=== PATIENT | female | born 1935 | race Caucasian/White ===

== ENCOUNTER 2021-05-06 09:47 | Emergency (ER) | payer MEDICARE, MEDICAID, SELFPAY ==
[2021-05-06] VITALS (17 sets, daily range): BP systolic 85–148; BP diastolic 61–99; PULSE 56–103; RESP 15–21; TEMP 36.6; O2SAT 95–100
--- NOTE | ~2021-05-06 | XR_ITS ---
EXAMINATION: XR chest 2V DATE: 05/06/2021 10:18 INDICATION: Weakness. TECHNIQUE: Frontal and lateral views of the chest were obtained. COMPARISON: None. FINDINGS: There is mild scarring at the lung apices. Right posterior costophrenic angle is excluded. No pleural effusion or pneumothorax. The heart size is normal. Median sternotomy wires and mediastina l surgical clips are seen, likely from prior coronary artery bypass grafting. There is calcified athe rosclerosis of the aorta, which is tortuous. IMPRESSION: 1. Mild scarring at the lung apices. Reviewed, dictated and finalized at location A.
--- NOTE | 2021-05-06 09:54 | ECG_ITS ---
Measurements Intervals [place] Rate: 66 P: 83 OK: 194 QRS: -42 QRSD: 115 T: 81 QT: 433 QTc: 455 Interpretive Statements SINUS RHYTHM POSSIBLE RIGHT ATRIAL ENLARGEMENT LEFT ATRIAL ENLARGEMENT LEFT AXIS DEVIATION INCOMPLETE RIGHT BUNDLE BRANCH BLOCK BORDERLINE ECG Electronically Signed On 05-06-2021 10:28:54 CDT by Sonu Sanchez D.O.
[2021-05-06 10:48] LABS: Basophils Absolute Auto 0.1 K/mm3 (0.0-0.1); Basophils Percent Auto 1.4 % (0.2-1.2); Eosinophils Absolute Auto 0.4 K/mm3 (0-0.3); Eosinophils Percent Auto 5.6 % (0-4.4); Hematocrit 42.3 % (37.0-47.0); Hemoglobin 13.4 g/dL (12.0-15.0); Immature Granulocyte Absolute 0.05 K/mm3 (0.00-0.031); Immature Granulocyte Percent A 0.8 % (0-0.5); Lymphocytes Absolute Auto 1.35 K/mm3 (0.9-3.2); Lymphocytes Percent Auto 20.3 % (18.3-44.2); Mean Corpuscular HGB Conc 31.7 g/dl (32-36); Mean Corpuscular Hemoglobin 30.8 pg (26-34); Mean Corpuscular Volume 97.2 fl (80-100); Mean Platelet Volume 9.6 fl (7.4-10.4); Monocytes Absolute Auto 0.5 K/mm3 (0.1-0.6); Monocytes Percent Auto 7.2 % (2.6-8.5); Neutrophils Absolute Auto 4.3 K/mm3 (1.3-6.7); Neutrophils Percent Auto 64.7 % (45.5-73.1); Platelet Count Result 186 k/mm3 (150-375); Red Blood Count 4.35 M/mm3 (4.2-5.4); Red Cell Distribution Width 12.9 % (11.5-14.5); White Blood Count 6.7 K/mm3 (4.5-10.0)
[2021-05-06 10:52] LABS: Alanine Aminotransferase 8 U/L (4-35); Albumin Level 4.2 g/dL (3.5-5.1); Alkaline Phosphatase 77 U/L (38-126); Anion Gap 11 mmol/L (8-16); Aspartate Amino Transferase 23 U/L (14-36); Bilirubin,Total 0.7 mg/dL (0.2-1.3); Blood Urea Nitrogen 13 mg/dL (7-17); Carbon Dioxide 28 mmol/L (22-30); Chloride 99 mmol/L (98-107); Estimated CRCL calculation 19 ml/min; Estimated Glomerular Filt Rate 47; Glucose 104 mg/dL (65-105); Sodium 138 mmol/L (137-145)
[2021-05-06 10:54] LABS: Add Urine Microscopic? YES; Appearance Urine Cloudy (Clear); Bacteria Urine Trace /hpf; Bilirubin Urine Negative (Negative); Blood Urine 1+ (Negative); Budding Yeast Urine Present /hpf; Color Urine Yellow (Yellow); Glucose Urine UA Negative (Negative); Ketones Urine Negative (Negative); Leukocyte Esterase Ur 3+ LEU/UL (Negative); Mucus Urine Rare /lpf; Nitrate Urine Negative (Negative); Protein Urine Negative (Negative); Specific Grav Ur 1.011 (1.001-1.035); Squamous Epithelial Cell Urine Few /hpf (Few); Urobilinogen Urine Negative mg/dL (<2.0); WBC Urine >75 /hpf
[2021-05-06] MEDS: SODIUM CHLORIDE 0.9% IV 1,000 ML 999 ML IV CONT (11:23)
[2021-05-06] MEDS: ACETAMINOPHEN 500 MG TABLET PO (12:03)
--- NOTE | 2021-05-06 14:16 | ED.WEAKNESS ---
HPI - Weakness General Chief complaint: Weakness Stated complaint: WEAKNESS History of Present Illness HPI Narrative: Patient is an 85-year-old female who presents ER with reports of feeling dizzy. Reports it occurs when she goes from sitting to standing. According EMS patient has longstanding history of failure to thrive and is living at home as family does not want patient in a [place] [facility] care facility. Patient often goes to ERs to be evaluated. Related Data Allergies Allergy/AdvReac Type Severity Reaction Status Date / Time aspirin Allergy Mild RASH,ITCHIN Verified 05/06/21 14:50 G diphenhydramine Allergy Unknown Unknown Verified 05/06/21 14:50 Penicillins Allergy Unknown Unknown Verified 05/06/21 14:50 sulfamethoxazole Allergy Unknown Gastrointestinal Verified 05/06/21 14:50 Upset trimethoprim Allergy Unknown Unknown Verified 05/06/21 14:50 Review of Systems Review of Systems: All systems reviewed & are unremarkable except as noted in HPI and below Constitutional: Constitutional: Denies chills, Denies fever(s) and Denies weakness ENT: Reports dizziness, Denies nasal congestion and Denies sore throat Respiratory: Respiratory: Denies cough and Denies dyspnea Gastrointestinal: Gastrointestinal: Denies abdominal pain, Denies diarrhea, Denies nausea and Denies vomiting Genitourinary: Genitourinary: Denies dysuria and Denies flank pain PMFSH Past Medical History Medical History (Updated 05/06/21 @ 14:53 by Saroj Uriarte MD) Failure to thrive Hypertension Surgical History Surgical History (Updated 05/06/21 @ 14:51 by Saroj Uriarte MD) Hx of CABG Social History Social History (Updated 05/06/21 @ 14:52 by Saroj Uriarte MD) Smoking status: Never smoker Alcohol intake: never Exam Narrative: Exam Narrative: GENERAL: Chronically ill-appearing and underweight, and in no acute distress. HEAD: Normocephalic, atraumatic. EYES: PERRL and EOMI. ENT: Mucous membranes moist. CHEST: Clear to auscultation. No respiratory distress. HEART: Regular rate and rhythm. Normal peripheral pulses. ABDOMEN: Soft, nontender, nondistended. EXTREMITIES: Normal range of motion. No edema. SKIN: Warm, dry, no rash. NEURO: Alert and oriented x2-3 Course Course Emergency Course: Patient no longer dizzy or orthostatic after IV fluid. Will give IV fluids. Patient typically only ambulates with assistance at home and has been able to stand here. Discharge home. Vital Signs Vital signs: Vital Signs Temperature 97.9 F 05/06/21 09:41 Pulse Rate 77 05/06/21 09:41 Respiratory Rate 15 05/06/21 09:41 Blood Pressure 113/82 05/06/21 09:41 Pulse Oximetry 100 05/06/21 09:41 Temperature 97.9 F 05/06/21 09:41 Pulse Rate 93 05/06/21 14:33 Respiratory Rate 15 05/06/21 09:41 Blood Pressure 131/71 05/06/21 14:33 Pulse Oximetry 100 05/06/21 09:41 MDM - Weakness Lab Data Result diagrams: 05/06/21 10:33 05/06/21 10:33 Labs: Lab Results 05/06/21 05/06/21 05/06/21 Range/Units 10:33 10:33 10:33 WBC 6.7 (4.5-10.0) K/mm3 RBC 4.35 (4.2-5.4) M/mm3 Hgb 13.4 (12.0-15.0) g/dL Hct 42.3 (37.0-47.0) % MCV 97.2 (80-100) fl MCH 30.8 (26-34) pg MCHC 31.7 L (32-36) g/dl RDW 12.9 (11.5-14.5) % Plt Count 186 (150-375) k/mm3 MPV 9.6 (7.4-10.4) fl Immature Gran % (Auto) 0.8 H (0-0.5) % Neut % (Auto) 64.7 (45.5-73.1) % Lymph % (Auto) 20.3 (18.3-44.2) % [place] % (Auto) 7.2 (2.6-8.5) % Eos % (Auto) 5.6 H (0-4.4) % Baso % (Auto) 1.4 H (0.2-1.2) % Lymph # (Auto) 1.35 (0.9-3.2) K/mm3 [place]row # (Auto) 0.5 (0.1-0.6) K/mm3 Eos # (Auto) 0.4 H (0-0.3) K/mm3 Baso # (Auto) 0.1 (0.0-0.1) K/mm3 Abs Immat Gran (auto) 0.05 H (0.00-0.031) K/mm3 Absolute Neuts (auto) 4.3 (1.3-6.7) K/mm3 Absolute Nucleated RBC 0.0 (0.0-0.012) K/mm3 Nucleated RBC % 0.0 (0.0-0.2) % Sodium
== END 2021-05-06 15:41 | disposition home or self-care (01) ==
PROVIDERS: Emergency Provider Emergency Medicine
DX: E86.0 Dehydration (principal); N39.0 Urinary tract infection, site not specified; I10 Essential (primary) hypertension; Z95.1 Presence of aortocoronary bypass graft
CPT/HCPCS: 36415; 71046; 80053; 81001; 85025; 87077; 87086; 87088; 87186; 93005; 96361; 96365; 99284; A9270; J0696; J7030

== ENCOUNTER 2021-12-15 11:00 | Inpatient (IN) | payer MEDICARE, MEDICAID, SELFPAY ==
[2021-12-15] VITALS (7 sets, daily range): BP systolic 92–137; BP diastolic 52–72; PULSE 62–71; RESP 16–24; TEMP 36.2–36.6; O2SAT 97–100; BMI 14.4
--- NOTE | ~2021-12-15 | CT_ITS ---
EXAMINATION: CT chest abdomen pelvis wo con EXAM DATE: 12/18/2021 19:02 INDICATION: Weight loss . TECHNIQUE: Spiral CT of the chest, abdomen and pelvis was performed without contrast. Axial, coronal and sagittal images chest, abdomen and pelvis were reviewed. Coronal maximum intensity pixel images of chest reviewed. The dose-length product (DLP) for this examination was 258.35 mGy-cm. The expos ure was tailored according to patient size (auto mA exposure control), and iterative reconstruction ( ASIR) was used as additional dose reduction technique. Comparison is made to prior examination from . FINDINGS: CHEST: There is biapical scarring. The lower thoracic abdominal aorta is aneurysmal up to 5.0 cm. Sm all right, trace left pleural effusions. Mild cardiomegaly. No pneumothorax. No thoracic lymphadenopa thy. ABDOMEN PELVIS: Liver, spleen, adrenal glands, pancreas are normal. Cholecystectomy clips. Punctate b ilateral nephrolithiasis. No hydronephrosis. Expected amount of colonic stool. Small gastroesophageal hiatal hernia. Scattered mild to moderate amount of sigmoid colonic diverticulosis without definite acute adjacent inflammation. No small bowel obstruction. Uterus is unremarkable. Small foci of gas al bre the anterior aspect of the bladder wall, correlate with any history of recent catheterization. No abdominal lymphadenopathy. Scoliosis. IMPRESSION: 1. Bladder gas, correlate with any recent catheterization. Small right, trace left pleural effusions . 2. Lower thoracic 5 cm aortic aneurysm. 3. Cardiomegaly. 4. Colonic diverticulosis. 5. Small bilateral nephrolithiasis. 6. No appreciable abdomen or pelvis change compared to CT 2 days ago. Reviewed, dictated and finalized at location G. AND SCIENCES DEPARTMENT CHAIR IMPRESSION: 1. Bladder gas, correlate with any recent catheterization. Small right, trace left pleural effusions. 2. Lower thoracic 5 cm aortic aneurysm. 3. Cardiomegaly. 4. Colonic diverticulosis. 5. Small bilateral nephrolithiasis. 6. No appreciable abdomen or pelvis change compared to CT 2 days ago.
--- NOTE | ~2021-12-15 | XR_ITS ---
EXAMINATION: XR chest 1V portable 12/15/2021 11:41 INDICATION: Syncope. Lethargy. PROCEDURE: AP portable chest COMPARISON: 05/06/2021 FINDINGS: The lungs are clear. The cardiomediastinal silhouette is within normal limits. There are no pleural effusions. There is no pneumothorax suspected. IMPRESSION: 1: NO ACUTE CARDIOPULMONARY DISEASE. Reviewed, dictated and finalized at location A. OLOGIST ASSISTANT
--- NOTE | ~2021-12-15 | CT_ITS ---
EXAMINATION: CT brain wo con DATE: 12/15/2021 11:41 INDICATION: Syncope TECHNIQUE: Computed tomography (CT) of the head was performed without intravenous contrast. The dose- length product was 605.33 mGy-cm. Automated exposure control and iterative reconstruction technique w ere employed. COMPARISON: None FINDINGS: Generalized atrophy. There are scattered mild periventricular and subcortical white matter changes, most likely related to small vessel ischemic disease (microangiopathy). No acute intracrania l hemorrhage, infarction, mass or mass effect. No ventriculomegaly or midline shift. Study limited by motion artifact. Paranasal sinuses are pneumatized. Small left mastoid effusion. No depressed skull fractures. IMPRESSION: 1. No acute intracranial abnormality. 2: Chronic age-related findings. Reviewed, dictated and finalized at location A. E SALESMAN
--- NOTE | ~2021-12-15 | CT_ITS ---
EXAMINATION: CT abdomen pelvis wo con DATE: 12/15/2021 12:52 INDICATION: Diarrhea and weakness TECHNIQUE: Computed tomography (CT) of the abdomen and pelvis was performed without intravenous contr ast. The dose-length product was 274.91 mGy-cm. Automated exposure control and iterative reconstructi on technique were employed. COMPARISON: None. FINDINGS: Lung bases are unremarkable. Heart size normal. No significant pleural or pericardial effus ion. There is atherosclerosis. Nonobstructive bowel gas pattern. No lymphadenopathy. There are calcif ications of the gallbladder wall which are not circumferential. The liver, spleen, pancreas and adren al glands are unremarkable. There are nonobstructing bilateral renal stones. There is a right renal c yst. There is scoliosis. There are degenerative changes of the hips. IMPRESSION: 1. Nonobstructing bilateral nephrolithiasis. 2: Partial calcification of the gallbladder. Consider correlation with ultrasound if there is concern for cholecystitis. Reviewed, dictated and finalized at location A. OLOGY LAB TECHNICIAN IMPRESSION: 1. Nonobstructing bilateral nephrolithiasis. 2: Partial calcification of the gallbladder. Consider correlation with ultrasou nd if there is concern for cholecystitis.
--- NOTE | 2021-12-15 11:24 | ECG_ITS ---
Measurements Intervals [place] Rate: 70 P: 83 AR: 175 QRS: -40 QRSD: 117 T: 96 QT: 445 QTc: 480 Interpretive Statements SINUS RHYTHM RIGHT ATRIAL ENLARGEMENT LEFT ATRIAL ENLARGEMENT LEFT AXIS DEVIATION INCOMPLETE RIGHT BUNDLE BRANCH BLOCK CANNOT RULE OUT SEPTAL INFARCT, AGE INDETERMINATE BASELINE ARTIFACT- I, II, III, AVR, AVL, AVF, V1-V6 ABNORMAL ECG Electronically Signed On 12-15-2021 13:20:33 REGULATORY COMPLIANCE SPECIALIST by Sonu Sanchez D.O.
[2021-12-15] MEDS: SODIUM CHLORIDE 0.9% IV 500 ML 999 ML IV CONT (12:00)
[2021-12-15 12:04] LABS: Basophils Percent Auto 0.4 % (0.2-1.2); Hematocrit 46.6 % (37.0-47.0); Hemoglobin 14.5 g/dL (12.0-15.0); Immature Granulocyte Absolute 0.04 K/mm3 (0.00-0.031); Immature Granulocyte Percent A 0.5 % (0-0.5); Lymphocytes Absolute Auto 1.92 K/mm3 (0.9-3.2); Lymphocytes Percent Auto 25.6 % (18.3-44.2); Mean Corpuscular HGB Conc 31.1 g/dl (32-36); Mean Corpuscular Hemoglobin 31.1 pg (26-34); Monocytes Absolute Auto 0.7 K/mm3 (0.1-0.6); Monocytes Percent Auto 9.5 % (2.6-8.5); Neutrophils Absolute Auto 4.8 K/mm3 (1.3-6.7); Platelet Count Result 154 k/mm3 (150-375); Red Blood Count 4.66 M/mm3 (4.2-5.4); Red Cell Distribution Width 14.4 % (11.5-14.5); White Blood Count 7.5 K/mm3 (4.5-10.0)
[2021-12-15 12:18] LABS: Prothrombin Time 12.3 Seconds (11.1-14.7)
[2021-12-15 12:19] LABS: Partial Thromboplastin Time 26.4 SECONDS (22.3-36.8)
--- NOTE | 2021-12-15 12:19 | ED.AMS ---
HPI - Altered Mental Status General Chief Complaint: Altered Mental Status Stated Complaint: AMS,LETHARGY Time Seen by Provider: 12/15/21 11:15 Source: patient, EMS and RN notes reviewed Mode of arrival: EMS Limitations: altered mental status History of Present Illness HPI narrative: This is an 86 year old female with history of orthostatic hypotension who presents from half-way for evaluation of syncope and lethargy. Nursing staff reports they were given report that patient was having diarrhea and she had a syncopal episode. Patient is hard of hearing and it is reported she is altered. She is oriented to person and age. She does not state any complaints other than that she is cold. Related Data Home Medications Medication Instructions Recorded Confirmed acetaminophen 325 mg PO Q4-6H PRN 12/15/21 12/15/21 aspirin 81 mg PO DAILY 12/15/21 12/15/21 cholecalciferol (vitamin D3) 125 mcg PO DAILY 12/15/21 12/15/21 levothyroxine 25 mcg PO DAILY 12/15/21 12/15/21 mirtazapine 15 mg PO DAILY 12/15/21 12/15/21 Allergies Allergy/AdvReac Type Severity Reaction Status Date / Time aspirin Allergy Mild RASH,ITCHIN Verified 05/06/21 14:50 G chlordiazepoxide Allergy Mild Unknown Verified 12/15/21 16:52 [From Librium] diphenhydramine Allergy Unknown Unknown Verified 05/06/21 14:50 Penicillins Allergy Unknown Unknown Verified 05/06/21 14:50 sulfamethoxazole Allergy Unknown Gastrointestinal Verified 05/06/21 14:50 Upset trimethoprim Allergy Unknown Unknown Verified 05/06/21 14:50 Review of Systems Review of Systems: ROS unobtainable: Yes unobtainable due to mental status [facility] Past Medical History Medical History (Updated 12/15/21 @ 15:30 by Meri Schmid PA-C) Coronary artery disease Failure to thrive Hypertension Hypothyroidism Surgical History Surgical History (Updated 12/15/21 @ 15:17 by Meri Schmid PA-C) History of coronary artery bypass graft Family History Family History Other Congestive heart failure Diabetes mellitus Hypertension Social History Social History (Updated 12/15/21 @ 15:22 by Meri Schmid PA-C) Social History: Currently residing at a local half-way. No alcohol, tobacco, or drug use. Healthcare power of instrument room technician is Genny Damon, daughter. Code status: Full code. Smoking status: Unknown if ever smoked Second hand tobacco smoke exposure: No Alcohol intake: never Substance use: never Substance use type: does not use Spiritual care concerns: No Exam Const: General: alert Nutritional Appearance: thin Other: oriented to person, place and age HENMT: Head: normocephalic and atraumatic Face and sinus: face symmetric Mouth: Yes lip normal, Yes tongue normal and Yes dry mucous membranes Throat: posterior oropharynx normal, tonsils normal and uvula midline Eyes: Pupils: Equal, round and reactive pupils present Other: right pupil is irregular and dilated, nonreactive; left pupil is reactive Resp: Effort & Inspection: normal respiratory effort and no retractions Auscultation: clear to auscultation bilaterally Cardio: Rate: regular rate Rhythm: regular rhythm Heart sounds: no murmurs GI: GI Palp: Yes Soft to palpation, No Tenderness to palpation present (GI) and No Guarding due to palpation present (GI) Auscultation: normal bowel sounds Neuro: General: patient oriented x3, moves all extremities and CN's II-XI intact bilaterally Extrem: General: no pedal edema Psych: Mental Status: mental status grossly normal Affect: normal affect Course Reevaluation(s) Reevaluation #1: On review of patient's chart and labs. She does have acute kidney injury likely due to dehydration. She also has lactic acidosis. No abdominal tenderness or pain that I can elicit. Will admit for hydration. Date: 12/15/21 Time: 14:08 Vital Signs Vital signs: Vital Signs Temperature 97
[2021-12-15 12:20] LABS: Add Urine Microscopic? YES; Appearance Urine Cloudy (Clear); Bacteria Urine Trace /hpf; Bilirubin Urine Negative (Negative); Blood Urine Negative (Negative); Color Urine Amber (Yellow); Glucose Urine UA Negative (Negative); Hyaline Casts Urine 20-29 /lpf; Ketones Urine Negative (Negative); Leukocyte Esterase Ur Trace LEU/UL (Negative); Mucus Urine Rare /lpf; Nitrate Urine Negative (Negative); Protein Urine Negative (Negative); Specific Grav Ur 1.019 (1.001-1.035); Squamous Epithelial Cell Urine Many /hpf (Few); Urobilinogen Urine Negative mg/dL (<2.0); WBC Urine 31-50 /hpf
[2021-12-15 12:21] LABS: Lactic Acid Reflex 3.9 mmol/L (0.7-2.1)
[2021-12-15 12:23] LABS: Alanine Aminotransferase 22 U/L (4-35); Alkaline Phosphatase 88 U/L (38-126); Anion Gap 16 mmol/L (8-16); Aspartate Amino Transferase 45 U/L (14-36); Bilirubin,Total 0.3 mg/dL (0.2-1.3); Blood Urea Nitrogen 45 mg/dL (7-17); Calcium 8.6 mg/dL (8.4-10.2); Carbon Dioxide 19 mmol/L (22-30); Chloride 99 mmol/L (98-107); Estimated CRCL calculation 12 ml/min; Estimated Glomerular Filt Rate 27; Glucose 147 mg/dL (65-110); Potassium 3.8 mmol/L (3.4-5.0); Sodium 134 mmol/L (137-145)
[2021-12-15] MEDS: SODIUM CHLORIDE 0.9% IV 1,000 ML 999 ML IV CONT (12:41)
--- NOTE | 2021-12-15 14:15 | PM.IMHP ---
H&P: HPI History of Present Illness Date/Time: 12/15/21 14:15 Chief Complaint: Syncope. Narrative: This is an 86-year-old female with hypothyroidism who presented to the emergency department via EMS for evaluation after a syncopal episode. She is a fair historian but history is limited given her significant hearing loss and thus some of the following information is obtained via a review of her electronic medical records. According to EMS documentation they were called to a local longterm for evaluation of the patient to was reportedly unresponsive. Staff at the longterm report that she had a large volume of diarrhea and had a syncopal episode while in the bathroom. The patient tells me that she has had an upset stomach for couple of days with mild nausea but no vomiting. She goes on to say that her appetite has not been great for quite some time and she continues to lose weight and was in fact started on mirtazapine. In any event, staff helped her to bed and called 911. On EMS arrival her blood pressure was 78/44 and her pressures have improved with IV fluid rehydration. Pertinent labs include a sodium of 134, carbon dioxide of 19, BUN 45, creatinine 1.80, and lactic acid of 3.9. Brain CT and chest x-ray were unremarkable. CT of the abdomen and pelvis showed nonobstructing bilateral nephrolithiasis and partial calcification of the gallbladder. She is being for hydration and further monitoring. At the time my evaluation she tells me she just does not feel well with generalized nausea but no other specific symptoms. It is noted that she recently finished a total of 5 days Rocephin IM for ?infection? unknown to the patient, possibly UTI. She denies fever, chills, sweats, cold and flu symptoms, chest pain, pleuritic pain, palpitations, shortness breast, cough, vomiting, and dysuria. Review of Systems Review of Systems: Twelve systems were reviewed and are negative except for as per HPI. [facility] Past Medical History Medical History (Updated 12/16/21 @ 00:49 by Meri Schmid PA-C) Coronary artery disease Failure to thrive Hearing loss Hypertension Hypothyroidism Surgical History Surgical History (Updated 12/16/21 @ 00:49 by Meri Schmid PA-C) History of cataract extraction History of coronary artery bypass graft History of tonsillectomy Family History Family History Other Congestive heart failure Diabetes mellitus Hypertension Social History Social History (Updated 12/15/21 @ 15:22 by Meri Schmid PA-C) Social History: Currently residing at a local longterm. No alcohol, tobacco, or drug use. Healthcare power of title attorney is Genny Damon, daughter. Code status: Full code. Smoking status: Unknown if ever smoked Second hand tobacco smoke exposure: No Alcohol intake: never Substance use: never Substance use type: does not use Spiritual care concerns: No Meds Home Medications and Allergies Home Medications Medication Instructions Recorded Confirmed Type acetaminophen 325 mg PO Q4-6H PRN 12/15/21 12/15/21 History aspirin 81 mg PO DAILY 12/15/21 12/15/21 History cholecalciferol (vitamin D3) 125 mcg PO DAILY 12/15/21 12/15/21 History levothyroxine 25 mcg PO DAILY 12/15/21 12/15/21 History mirtazapine 15 mg PO DAILY 12/15/21 12/15/21 History Allergies Allergy/AdvReac Type Severity Reaction Status Date / Time aspirin Allergy Mild RASH,ITCHIN Verified 05/06/21 14:50 G chlordiazepoxide Allergy Mild Unknown Verified 12/15/21 16:52 [From Librium] diphenhydramine Allergy Unknown Unknown Verified 05/06/21 14:50 Penicillins Allergy Unknown Unknown Verified 05/06/21 14:50 sulfamethoxazole Allergy Unknown Gastrointestinal Verified 05/06/21 14:50 Upset trimethoprim Allergy Unknown Unknown Verified 05/06/21 14:50 Vital Signs Vital Signs - 24 hr 12/15/21 11:04 Temperature 97.1 F L Pulse Rate 71 Respiratory Rate
[2021-12-15 15:01] LABS: Reflex Lactic Acid Yes or No Add Lactic
--- NOTE | 2021-12-15 15:26 | PC.NURSE ---
Patient care report called to AUSTIN Mccray. All questions answered at this time. lead injection mold technician to transport patient to assigned inpatient room of 254.
--- NOTE | 2021-12-15 16:12 | PC.NURSE ---
Souvenir And Novelty Maker called AUSTIN Mccray and informed that patient's fluids have not been infusing due to patient continuing to bend her arm. Souvenir And Novelty Maker initiated a second IV in patient's left wrist and moved fluids over to that line. Also informed Levaquin was sent up with patient but has not been given yet.
[2021-12-15 16:17] LABS: Lactic Acid 1.9 mmol/L (0.7-2.1)
[2021-12-15 16:20] LABS: CRP < 0.5 mg/dL (<1.0)
--- NOTE | 2021-12-15 17:16 | PC.NURSE ---
Patient Admitted from [facility] after an episode of syncope and diarrhea episode at the facility. Patient is being admitted for PETR. Patient arrived to [facility] at 1630 with her daughter from ED. No belongings with patient. Patient is Hard of Hearing. Patient denies pain upon admission. Call light given to patient and return demonstration repeated. No concerns voiced from family or patient at this time.
[2021-12-15] MEDS: SODIUM CHLORIDE 0.9% IV 1,000 ML 75 ML IV CONT (17:30)
[2021-12-16] VITALS (15 sets, daily range): BP systolic 111–134; BP diastolic 42–84; PULSE 57–75; RESP 16–18; TEMP 36–36.8; O2SAT 96–100
[2021-12-16] MEDS: ACETAMINOPHEN 325 MG TABLET PO ×2 (03:16→21:07)
[2021-12-16] MEDS: LEVOTHYROXINE SODIUM 25 MCG TABLET PO (05:38)
[2021-12-16] MEDS: SODIUM CHLORIDE 0.9% IV 1,000 ML 75 ML IV CONT ×2 (05:39→18:18)
[2021-12-16 06:15] LABS: Basophils Percent Auto 0.2 % (0.2-1.2); Eosinophils Percent Auto 0.5 % (0-4.4); Hematocrit 35.4 % (37.0-47.0); Hemoglobin 11.2 g/dL (12.0-15.0); Immature Granulocyte Absolute 0.02 K/mm3 (0.00-0.031); Immature Granulocyte Percent A 0.5 % (0-0.5); Immature Platelet Fraction Pct 5.2 % (0.9-11.2); Lymphocytes Percent Auto 45.7 % (18.3-44.2); Mean Corpuscular HGB Conc 31.6 g/dl (32-36); Mean Corpuscular Hemoglobin 31.3 pg (26-34); Mean Corpuscular Volume 98.9 fl (80-100); Mean Platelet Volume 10.3 fl (7.4-10.4); Monocytes Absolute Auto 0.5 K/mm3 (0.1-0.6); Monocytes Percent Auto 11.6 % (2.6-8.5); Neutrophils Absolute Auto 1.8 K/mm3 (1.3-6.7); Neutrophils Percent Auto 41.5 % (45.5-73.1); Platelet Count Result 134 k/mm3 (150-375); Red Blood Count 3.58 M/mm3 (4.2-5.4); Red Cell Distribution Width 14.3 % (11.5-14.5); White Blood Count 4.4 K/mm3 (4.5-10.0)
[2021-12-16 06:21] LABS: Alanine Aminotransferase 16 U/L (4-35); Alkaline Phosphatase 61 U/L (38-126); Anion Gap 8 mmol/L (8-16); Aspartate Amino Transferase 33 U/L (14-36); Bilirubin,Total < 0.1 mg/dL (0.2-1.3); Blood Urea Nitrogen 36 mg/dL (7-17); Calcium 7.8 mg/dL (8.4-10.2); Carbon Dioxide 20 mmol/L (22-30); Chloride 107 mmol/L (98-107); Estimated CRCL calculation 23 ml/min; Estimated Glomerular Filt Rate 53; Glucose 122 mg/dL (65-110); Potassium 3.4 mmol/L (3.4-5.0); Sodium 135 mmol/L (137-145)
[2021-12-16] MEDS: ASPIRIN 81 MG ENTERIC TABLET PO (07:59)
[2021-12-16] MEDS: MIRTAZAPINE SOLTAB 15 MG TAB.DISPER PO (08:00)
[2021-12-16] MEDS: CHOLECALCIFEROL 1,000 UNITS TABLET 5000 UNITS PO (08:00)
[2021-12-16] MEDS: POTASSIUM CHLORIDE 20 MEQ TABLET 40 MEQ PO (10:36)
--- NOTE | 2021-12-16 11:53 | PM.IMPN ---
Progress Note: A&P Assessment and Plan (1) Syncope and collapse: Code(s): R55 - Syncope and collapse Status: Acute Assessment and Plan: 12/16/2021 interval history: patient 86-year-old female a resident of nursing had a large bowel movement and became hypotensive, most likely dehydration patient being gently hydrated her blood pressure is trending up, unfortunately patient unable to provide detailed review of symptom will continue to hydrate the patient, will have a PT OT evaluate the patient and further recommendation to follow. (2) Acute kidney injury: Code(s): N17.9 - Acute kidney failure, unspecified Status: Acute (3) Acute dehydration: Code(s): E86.0 - Dehydration Status: Acute (4) Lactic acidosis: Code(s): E87.2 - Acidosis Status: Acute (5) Hypothyroidism: Code(s): E03.9 - Hypothyroidism, unspecified Status: Acute (6) Severely underweight adult: Code(s): R63.6 - Underweight Status: Acute Additional Plan The patient was brought in today after having a syncopal episode while on the toilet, likely due to either a vasovagal response or a drop in blood pressure from volume loss and dehydration though more likely a combination of both. As such I do not feel it is necessary to pursue a further syncopal workup at this juncture. However she will be monitored on telemetry to rule out cardiac dysrhythmia which seems less likely. Labs are consistent with acute dehydration from volume loss and she will be judiciously hydrated with close monitoring of volume status and renal function. Lactic acidosis is likely due to hypovolemia and hypoperfusion and sepsis is less unlikely though will obtain blood and urine cultures. There are no findings on imaging today to suggest infection thus there is no indication for antibiotics. It should be noted that CT of the abdomen and pelvis showed partial calcification of the gallbladder at though her abdominal exam is benign. Patient has been been losing weight over the years and is being followed by her doctor due to failure to thrive, recently prescribed mirtazapine. She denies difficulties swallowing though that may be something to consider evaluating. Subjective Date/time seen: 12/16/21 11:53 Chief Complaint: Syncope. Narrative: This is an 86-year-old female with hypothyroidism who presented to the emergency department via EMS for evaluation after a syncopal episode. She is a fair historian but history is limited given her significant hearing loss and thus some of the following information is obtained via a review of her electronic medical records. According to EMS documentation they were called to a local fpc for evaluation of the patient to was reportedly unresponsive. Staff at the fpc report that she had a large volume of diarrhea and had a syncopal episode while in the bathroom. The patient tells me that she has had an upset stomach for couple of days with mild nausea but no vomiting. She goes on to say that her appetite has not been great for quite some time and she continues to lose weight and was in fact started on mirtazapine. In any event, staff helped her to bed and called 911. On EMS arrival her blood pressure was 78/44 and her pressures have improved with IV fluid rehydration. Pertinent labs include a sodium of 134, carbon dioxide of 19, BUN 45, creatinine 1.80, and lactic acid of 3.9. Brain CT and chest x-ray were unremarkable. CT of the abdomen and pelvis showed nonobstructing bilateral nephrolithiasis and partial calcification of the gallbladder. She is being for hydration and further monitoring. At the time my evaluation she tells me she just does not feel well with generalized nausea but no other specific symptoms. It is noted that she recently finished a total of 5 days Rocephin IM for ?infection? unknown to the patient, possibly UTI. She denies fever, chills, sweats, cold and flu symptoms, chest pain, pleuritic antonieta
--- NOTE | 2021-12-16 12:31 | PCDIET ---
Dietitian screen for BMI: 14.8 underweight. Spoke with nursing today 2/2 to confusion. Diet order: Regular. Oral intake reported 5/10% of meals. Patient is requiring the assistance of nursing to feed her at mealtimes. MD orders for Ensure compact BID providing an additional 220 kcals and 9 gms protein. No further nutritional interventions at this time.
[2021-12-17] VITALS (20 sets, daily range): BP systolic 104–133; BP diastolic 50–60; PULSE 55–83; RESP 16–18; TEMP 36.4–38.2; O2SAT 92–100
[2021-12-17] MEDS: LEVOTHYROXINE SODIUM 25 MCG TABLET PO (05:33)
[2021-12-17] MEDS: SODIUM CHLORIDE 0.9% IV 1,000 ML 75 ML IV CONT ×2 (08:50→21:28)
[2021-12-17] MEDS: CHOLECALCIFEROL 1,000 UNITS TABLET 5000 UNITS PO (08:52)
[2021-12-17] MEDS: MIRTAZAPINE SOLTAB 15 MG TAB.DISPER PO (08:52)
[2021-12-17] MEDS: ASPIRIN 81 MG ENTERIC TABLET PO (08:52)
--- NOTE | 2021-12-17 10:19 | PM.IMPN ---
Progress Note: A&P Assessment and Plan (1) Syncope and collapse: Code(s): R55 - Syncope and collapse Status: Acute Assessment and Plan: 12/16/2021 interval history: patient 86-year-old female a resident of nursing had a large bowel movement and became hypotensive, most likely dehydration patient being gently hydrated her blood pressure is trending up, unfortunately patient unable to provide detailed review of symptom will continue to hydrate the patient, will have a PT OT evaluate the patient and further recommendation to follow. Likely due to orthostatic hypotension related to large bowel movement/diarrhea /vasovagal. hypotensive on EMS evaluation with blood pressure systolic 78 mm Hg in ER she was in 90s have been hydrated and blood pressure has improved since then.Will stop IV fluids and monitor blood pressure. No cardiac arrhythmias noted on telemetry (2) Acute kidney injury: Code(s): N17.9 - Acute kidney failure, unspecified Status: Acute Assessment and Plan: Creatinine of 1.8 on admission baseline is normal back to normal with hydration (3) Acute dehydration: Code(s): E86.0 - Dehydration Status: Acute (4) Lactic acidosis: Code(s): E87.2 - Acidosis Status: Acute Assessment and Plan: 3.9 on admission lactic acid has since normalized Likely due to severe hypotension and dehydration. No signs of infection WBC count is normal chest x-ray is negative CT abdomen with nonobstructing bilateral nephrolithiasis and partial calcification of the gallbladder Blood culture x2 negative so far Urine culture no growth however urinalysis on admission with rbc's, wbc's many PT ileal cells and hyaline cast difficult to determine if she has UTI but this could suggest ATN like picture with dehydration (5) Hypothyroidism: Code(s): E03.9 - Hypothyroidism, unspecified Status: Acute Assessment and Plan: TSH came back normal (6) Severely underweight adult: Code(s): R63.6 - Underweight Status: Acute Assessment and Plan: workup as an outpatient On mirtazapine at home for appetite her weight is 39 kilos Noted weight on 04/2018 21 to be 36 kilos Continue workup as an outpatient basis Very poor p.o. intake Nutrition consult Subjective Date/time seen: 12/17/21 10:19 Interval history: HPI: This is an 86-year-old female with hypothyroidism who presented to the emergency department via EMS for evaluation after a syncopal episode. She is a fair historian but history is limited given her significant hearing loss and thus some of the following information is obtained via a review of her electronic medical records. According to EMS documentation they were [facility] to a local [facility] for evaluation of the patient to was reportedly unresponsive. Staff at the [facility] report that she had a large volume of diarrhea and had a syncopal episode while in the bathroom. The patient tells me that she has had an upset stomach for couple of days with mild nausea but no vomiting. She goes on to say that her appetite has not been great for quite some time and she continues to lose weight and was in fact started on mirtazapine. In any event, staff helped her to bed and called 911. On EMS arrival her blood pressure was 78/44 and her pressures have improved with IV fluid rehydration. Pertinent labs include a sodium of 134, carbon dioxide of 19, BUN 45, creatinine 1.80, and lactic acid of 3.9. Brain CT and chest x-ray were unremarkable. CT of the abdomen and pelvis showed nonobstructing bilateral nephrolithiasis and partial calcification of the gallbladder. She is being for hydration and further monitoring. At the time my evaluation she tells me she just does not feel well with generalized nausea but no other specific symptoms. It is noted that she recently finished a total of 5 days Rocephin IM for ?infection? unknown to the patient, possibly UTI. She denies fever, chills, swe
[2021-12-17] MEDS: ACETAMINOPHEN 325 MG TABLET PO (14:22)
--- NOTE | 2021-12-17 16:03 | PC.NURSE ---
On 11/27/21, the student, Regina Cesar, provided care and completed [employer] documentation on this patient. I have reviewed the student's documentation and agree with the findings
[2021-12-17 16:39] LABS: Hematocrit 36.2 % (37.0-47.0); Mean Corpuscular HGB Conc 30.4 g/dl (32-36); Mean Corpuscular Hemoglobin 31.4 pg (26-34); Mean Corpuscular Volume 103.4 fl (80-100); Mean Platelet Volume 10.3 fl (7.4-10.4); Red Cell Distribution Width 14.4 % (11.5-14.5); White Blood Count 4.2 K/mm3 (4.5-10.0)
[2021-12-17 16:46] LABS: Anion Gap 6 mmol/L (8-16); Blood Urea Nitrogen 14 mg/dL (7-17); Calcium 8.1 mg/dL (8.4-10.2); Carbon Dioxide 19 mmol/L (22-30); Chloride 111 mmol/L (98-107); Estimated CRCL calculation 36 ml/min; Estimated Glomerular Filt Rate > 60; Glucose 123 mg/dL (65-110); Potassium 3.9 mmol/L (3.4-5.0); Sodium 136 mmol/L (137-145)
[2021-12-17 16:47] LABS: Magnesium 1.8 mg/dL (1.6-2.3)
[2021-12-17] MEDS: METOPROLOL TARTRATE 6.25 MG TABLET PO (21:26)
[2021-12-18] VITALS (17 sets, daily range): BP systolic 93–146; BP diastolic 39–71; PULSE 55–98; RESP 14–17; TEMP 36.4–37.1; O2SAT 95–99
[2021-12-18 06:16] LABS: Basophils Percent Auto 0.6 % (0.2-1.2); Eosinophils Absolute Auto 0.2 K/mm3 (0-0.3); Eosinophils Percent Auto 4.3 % (0-4.4); Hemoglobin 11.7 g/dL (12.0-15.0); Immature Granulocyte Absolute 0.04 K/mm3 (0.00-0.031); Immature Granulocyte Percent A 1.1 % (0-0.5); Immature Platelet Fraction Pct 5.3 % (0.9-11.2); Lymphocytes Absolute Auto 1.26 K/mm3 (0.9-3.2); Mean Corpuscular HGB Conc 31.6 g/dl (32-36); Mean Corpuscular Hemoglobin 31.6 pg (26-34); Monocytes Absolute Auto 0.4 K/mm3 (0.1-0.6); Monocytes Percent Auto 10.6 % (2.6-8.5); Neutrophils Absolute Auto 1.7 K/mm3 (1.3-6.7); Neutrophils Percent Auto 47.4 % (45.5-73.1); Platelet Count Result 98 k/mm3 (150-375); Red Cell Distribution Width 14.4 % (11.5-14.5); White Blood Count 3.5 K/mm3 (4.5-10.0)
[2021-12-18] MEDS: LEVOTHYROXINE SODIUM 25 MCG TABLET PO (06:34)
[2021-12-18 07:02] LABS: Alanine Aminotransferase 24 U/L (4-35); Alkaline Phosphatase 65 U/L (38-126); Anion Gap 3 mmol/L (8-16); Aspartate Amino Transferase 51 U/L (14-36); Bilirubin,Total 0.3 mg/dL (0.2-1.3); Blood Urea Nitrogen 11 mg/dL (7-17); Calcium 8.2 mg/dL (8.4-10.2); Carbon Dioxide 25 mmol/L (22-30); Chloride 109 mmol/L (98-107); Estimated CRCL calculation 34 ml/min; Estimated Glomerular Filt Rate > 60; Glucose 83 mg/dL (65-110); Lipase 390 U/L (23-300); Magnesium 1.7 mg/dL (1.6-2.3); Phosphorus 3.2 mg/dL (2.5-4.5); Potassium 4.3 mmol/L (3.4-5.0); Sodium 137 mmol/L (137-145)
[2021-12-18] MEDS: CHOLECALCIFEROL 1,000 UNITS TABLET 5000 UNITS PO (08:08)
[2021-12-18] MEDS: MIRTAZAPINE SOLTAB 15 MG TAB.DISPER PO (08:08)
[2021-12-18] MEDS: ASPIRIN 81 MG ENTERIC TABLET PO (08:09)
[2021-12-18] MEDS: METOPROLOL TARTRATE 6.25 MG TABLET PO (08:09)
[2021-12-18] MEDS: SODIUM CHLORIDE 0.9% IV 1,000 ML 75 ML IV CONT (11:48)
--- NOTE | 2021-12-18 12:55 | PM.DS ---
DS: Admitting Diagnosis Discharge Date 12/18/2021 Admitting Diagnosis Syncope DS: Discharge Diagnosis Discharge Diagnosis (1) Syncope and collapse: Code(s): R55 - Syncope and collapse Status: Acute Assessment and Plan: The patient is a 86-year-old female a resident of nursing had a large bowel movement and became hypotensive, most likely dehydration patient being gently hydrated her blood pressure is trending up. She did have few runs of nonsustained ventricular tachycardia during the hospital stay which small dose of beta-pretty was added. Which he tolerated well. Her syncope likely due to orthostatic hypotension related to large bowel movement/diarrhea /vasovagal. hypotensive on EMS evaluation with blood pressure systolic 78 mm Hg in ER she was in 90s have been hydrated and blood pressure has improved since then.Will stop IV fluids and monitor blood pressure. She has poor appetite and poor p.o. intake and she is underweight with 42 kilos. Discussed this with the family who had taken care of her for while and recently was moved to nursing facility. They have opted to take her back home from here and will have 247 care for her. Discussed adequate p.o. intake and increasing calorie intake with addition of Ensure 2-3 times daily with meals will be needed for her to improve and recover (2) Acute kidney injury: Code(s): N17.9 - Acute kidney failure, unspecified Status: Acute Assessment and Plan: Creatinine of 1.8 on admission baseline is normal back to normal with hydration (3) Acute dehydration: Code(s): E86.0 - Dehydration Status: Acute Assessment and Plan: In color is increased oral intake (4) Lactic acidosis: Code(s): E87.2 - Acidosis Status: Acute Assessment and Plan: 3.9 on admission lactic acid has since normalized Likely due to severe hypotension and dehydration. No signs of infection WBC count is normal chest x-ray is negative CT abdomen with nonobstructing bilateral nephrolithiasis and partial calcification of the gallbladder Blood culture x2 negative so far Urine culture no growth however urinalysis on admission with rbc's, wbc's many PT ileal cells and hyaline cast difficult to determine if she has UTI but this could suggest ATN like picture with dehydration (5) Hypothyroidism: Code(s): E03.9 - Hypothyroidism, unspecified Status: Acute Assessment and Plan: TSH came back normal (6) Severely underweight adult: Code(s): R63.6 - Underweight Status: Acute Assessment and Plan: workup as an outpatient On mirtazapine at home for appetite her weight is 39 kilos Noted weight on 04/2018 21 to be 36 kilos Continue workup as an outpatient basis Very poor p.o. intake Nutrition consult Add Ensure Need encouragement and motivation Discussed this with the patient family DS: Summary Hospital Course Hospital Course: See above Time Spent with Patient Time attestation: Total time spent providing and/or coordinating discharge services: 45 minutes Exam Narrative: elderly frail severely under nourished Patient is comfortable, NAD HEENT: eyes are clear and none icteric LUNGS: normal respiratory effort, bilateral clear to auscultation ABD: soft,not distended Lower extremities: no edema cyanosis or clubbing SKIN: nonjaundiced Neuro: sleeping opens eyes upon verbal command on cooperative examination speech is clear moving all extremities DS: Data Data Completed and Pending Labs on day of discharge: Labs from last 24 hours 12/18/21 12/18/21 12/18/21 05:53 05:53 05:53 WBC 3.5 L RBC 3.70 L Hgb 11.7 L Hct 37.0 MCV 100.0 MCH 31.6 MCHC 31.6 L RDW 14.4 Plt Count 98 L MPV 10.0 Immature Gran % (Auto) 1.1 H Neut % (Auto) 47.4 Lymph % (Auto) 36.0 [place] % (Auto) 10.6 H Eos % (Auto) 4.3 Baso % (Auto) 0.6 Lymph # (Auto) 1.26 [place] # (Auto) 0.4 Eo
--- NOTE | 2021-12-18 14:11 | PM.IMPN ---
Progress Note: A&P Assessment and Plan (1) Syncope and collapse: Code(s): R55 - Syncope and collapse Status: Acute Assessment and Plan: The patient is a 86-year-old female a resident of nursing had a large bowel movement and became hypotensive, most likely dehydration patient being gently hydrated her blood pressure is trending up. She did have few runs of nonsustained ventricular tachycardia during the hospital stay which small dose of beta-pretty was added. Which he tolerated well. Her syncope likely due to orthostatic hypotension related to large bowel movement/diarrhea /vasovagal. hypotensive on EMS evaluation with blood pressure systolic 78 mm Hg in ER she was in 90s have been hydrated and blood pressure has improved since then.Will stop IV fluids and monitor blood pressure. She has poor appetite and poor p.o. intake and she is underweight with 42 kilos. Discussed this with the family who had taken care of her for while and recently was moved to nursing facility. They have opted to take her back home from here and will have 247 care for her. Discussed adequate p.o. intake and increasing calorie intake with addition of Ensure 2-3 times daily with meals will be needed for her to improve and recover Still has orthostatic hypotension will continue IV fluid. Stop metoprolol Will order CT chest abdomen pelvis for weight loss failure to thrive and ongoing orthostatic hypotension likely due to be poor p.o. intake (2) Acute kidney injury: Code(s): N17.9 - Acute kidney failure, unspecified Status: Acute Assessment and Plan: Creatinine of 1.8 on admission baseline is normal back to normal with hydration (3) Acute dehydration: Code(s): E86.0 - Dehydration Status: Acute Assessment and Plan: In color is increased oral intake (4) Lactic acidosis: Code(s): E87.2 - Acidosis Status: Acute Assessment and Plan: 3.9 on admission lactic acid has since normalized Likely due to severe hypotension and dehydration. No signs of infection WBC count is normal chest x-ray is negative CT abdomen with nonobstructing bilateral nephrolithiasis and partial calcification of the gallbladder Blood culture x2 negative so far Urine culture no growth however urinalysis on admission with rbc's, wbc's many PT ileal cells and hyaline cast difficult to determine if she has UTI but this could suggest ATN like picture with dehydration (5) Hypothyroidism: Code(s): E03.9 - Hypothyroidism, unspecified Status: Acute Assessment and Plan: TSH came back normal (6) Severely underweight adult: Code(s): R63.6 - Underweight Status: Acute Assessment and Plan: workup as an outpatient On mirtazapine at home for appetite her weight is 39 kilos Noted weight on 04/2018 21 to be 36 kilos Continue workup as an outpatient basis Very poor p.o. intake Nutrition consult Add Ensure Need encouragement and motivation Discussed this with the patient family Subjective Date/time seen: 12/18/21 14:11 Interval history: HPI: This is an 86-year-old female with hypothyroidism who presented to the emergency department via EMS for evaluation after a syncopal episode. She is a fair historian but history is limited given her significant hearing loss and thus some of the following information is obtained via a review of her electronic medical records. According to EMS documentation they were called to a local long term for evaluation of the patient to was reportedly unresponsive. Staff at the long term report that she had a large volume of diarrhea and had a syncopal episode while in the bathroom. The patient tells me that she has had an upset stomach for couple of days with mild nausea but no vomiting. She goes on to say that her appetite has not been great for quite some time and she continues to lose weight and was in fact started on mirtazapine. In any event, staff helped her to bed a
[2021-12-18 14:36] LABS: Lactic Acid Reflex 0.9 mmol/L (0.7-2.1)
[2021-12-18] MEDS: ONDANSETRON INJ 4 MG/2 ML VIAL IV PUSH (14:55)
[2021-12-18 16:42] LABS: Add Urine Microscopic? NO; Appearance Urine Clear (Clear); Bilirubin Urine Negative (Negative); Blood Urine Negative (Negative); Color Urine Straw (Yellow); Glucose Urine UA Negative (Negative); Ketones Urine Negative (Negative); Leukocyte Esterase Ur Negative LEU/UL (NEGATIVE); Nitrate Urine Negative (Negative); Protein Urine Negative (Negative); Specific Grav Ur 1.009 (1.001-1.035); Urobilinogen Urine Negative mg/dL (<2.0)
[2021-12-19] VITALS (13 sets, daily range): BP systolic 123–150; BP diastolic 55–90; PULSE 67–99; RESP 14–20; TEMP 36.5–37.1; O2SAT 74–98
[2021-12-19] MEDS: SODIUM CHLORIDE 0.9% IV 1,000 ML 75 ML IV CONT ×2 (00:07→15:06)
[2021-12-19] MEDS: LEVOTHYROXINE SODIUM 25 MCG TABLET PO (05:50)
[2021-12-19 05:58] LABS: Basophils Percent Auto 0.7 % (0.2-1.2); Eosinophils Absolute Auto 0.1 K/mm3 (0-0.3); Eosinophils Percent Auto 3.9 % (0-4.4); Hematocrit 34.5 % (37.0-47.0); Immature Granulocyte Absolute 0.03 K/mm3 (0.00-0.031); Immature Platelet Fraction Pct 6.4 % (0.9-11.2); Lymphocytes Absolute Auto 1.12 K/mm3 (0.9-3.2); Lymphocytes Percent Auto 36.5 % (18.3-44.2); Mean Corpuscular HGB Conc 31.9 g/dl (32-36); Mean Corpuscular Hemoglobin 31.3 pg (26-34); Mean Corpuscular Volume 98.3 fl (80-100); Monocytes Absolute Auto 0.3 K/mm3 (0.1-0.6); Monocytes Percent Auto 10.7 % (2.6-8.5); Neutrophils Absolute Auto 1.5 K/mm3 (1.3-6.7); Neutrophils Percent Auto 47.2 % (45.5-73.1); Platelet Count Result 89 k/mm3 (150-375); Red Blood Count 3.51 M/mm3 (4.2-5.4); Red Cell Distribution Width 14.2 % (11.5-14.5); White Blood Count 3.1 K/mm3 (4.5-10.0)
[2021-12-19 06:16] LABS: Alanine Aminotransferase 22 U/L (4-35); Albumin Level 2.9 g/dL (3.5-5.1); Alkaline Phosphatase 57 U/L (38-126); Anion Gap 3 mmol/L (8-16); Aspartate Amino Transferase 42 U/L (14-36); Bilirubin,Total 0.4 mg/dL (0.2-1.3); Blood Urea Nitrogen 7 mg/dL (7-17); Calcium 7.7 mg/dL (8.4-10.2); Carbon Dioxide 23 mmol/L (22-30); Chloride 107 mmol/L (98-107); Estimated CRCL calculation 32 ml/min; Estimated Glomerular Filt Rate > 60; Glucose 87 mg/dL (65-110); Magnesium 1.6 mg/dL (1.6-2.3); Sodium 133 mmol/L (137-145)
--- NOTE | 2021-12-19 08:36 | PM.IMPN ---
Progress Note: A&P Assessment and Plan (1) Syncope and collapse: Code(s): R55 - Syncope and collapse Status: Acute Assessment and Plan: The patient is a 86-year-old female a resident of nursing had a large bowel movement and became hypotensive, most likely dehydration patient being gently hydrated her blood pressure is trending up. She did have few runs of nonsustained ventricular tachycardia during the hospital stay which small dose of beta-pretty was added. Which he tolerated well. Her syncope likely due to orthostatic hypotension related to large bowel movement/diarrhea /vasovagal. hypotensive on EMS evaluation with blood pressure systolic 78 mm Hg in ER she was in 90s have been hydrated and blood pressure has improved since then.Will stop IV fluids and monitor blood pressure. She has poor appetite and poor p.o. intake and she is underweight with 42 kilos. Discussed this with the family who had taken care of her for while and recently was moved to nursing facility. They have opted to take her back home from here and will have 247 care for her. Discussed adequate p.o. intake and increasing calorie intake with addition of Ensure 2-3 times daily with meals will be needed for her to improve and recover Still has orthostatic hypotension will continue IV fluid. Stop metoprolol CT chest abdomen pelvis done did not show any acute or chronic findings I believe orthostatic hypotension is related to severe malnutrition and cachexia and sarcopenia leading to physical deconditioning. (2) Acute kidney injury: Code(s): N17.9 - Acute kidney failure, unspecified Status: Acute Assessment and Plan: Creatinine of 1.8 on admission baseline is normal back to normal with hydration (3) Acute dehydration: Code(s): E86.0 - Dehydration Status: Acute Assessment and Plan: encouraged increased oral intake (4) Lactic acidosis: Code(s): E87.2 - Acidosis Status: Acute Assessment and Plan: 3.9 on admission lactic acid has since normalized Likely due to severe hypotension and dehydration. No signs of infection WBC count is normal chest x-ray is negative CT abdomen with nonobstructing bilateral nephrolithiasis and partial calcification of the gallbladder Blood culture x2 negative so far Urine culture no growth however urinalysis on admission with rbc's, wbc's many PT ileal cells and hyaline cast difficult to determine if she has UTI but this could suggest ATN like picture with dehydration Repeat urinalysis was negative Lactic acid repeat negative (5) Hypothyroidism: Code(s): E03.9 - Hypothyroidism, unspecified Status: Acute Assessment and Plan: TSH came back normal (6) Severely underweight adult: Code(s): R63.6 - Underweight Status: Acute Assessment and Plan: workup as an outpatient On mirtazapine at home for appetite her weight is 39 kilos Noted weight on 04/2018 21 to be 36 kilos Continue workup as an outpatient basis Very poor p.o. intake Nutrition consult Add Ensure Need encouragement and motivation Discussed this with the patient family Discussed with nursing staff (7) Pancytopenia: Code(s): D61.818 - Other pancytopenia Status: Acute Assessment and Plan: worsening since admission particularly thrombocytopenia down to 89,000 admission platelet count was 154. No heparin or Lovenox has been use since admission. Any new medication that was given is levofloxacin in the ER for possible UTI was not been continued since admission. Will get hit antibody this to ensure she does not have heparin-induced thrombocytopenia. No signs and symptoms of thrombosis. No over need for continued anticoagulation at this point unless HIT antibody comes back positive. If continues to worsen may need Hematology consultation Will check HIV hepatitis panel [facility] Subjective Date/time seen: 12/19/21 08:36 Interval hi
[2021-12-19] MEDS: CHOLECALCIFEROL 1,000 UNITS TABLET 5000 UNITS PO (08:57)
[2021-12-19] MEDS: MIRTAZAPINE SOLTAB 15 MG TAB.DISPER PO (08:57)
[2021-12-19] MEDS: ASPIRIN 81 MG ENTERIC TABLET PO (08:57)
[2021-12-19] MEDS: ONDANSETRON INJ 4 MG/2 ML VIAL IV PUSH (09:00)
[2021-12-19 09:40] LABS: Fibrinogen 196 mg/dl (215-510)
[2021-12-19 10:31] LABS: Hepatitis B Surface Antigen Negative (Negative)
[2021-12-19 10:40] LABS: Hepatitis B Core IgM Result Negative (Negative)
[2021-12-19 10:48] LABS: Hepatitis C Virus Antibody Negative (Negative)
[2021-12-19 10:50] LABS: HIV 1/2 Ab P24 Ag Result Negative (Negative)
[2021-12-19 11:24] LABS: HAV RESULT Negative (Negative)
[2021-12-19 13:28] LABS: Folic Acid > 20.0 ng/mL (2.76->20); Vitamin B12 > 1000.0 pg/mL (239-931)
[2021-12-20] VITALS (8 sets, daily range): BP systolic 94–149; BP diastolic 41–96; PULSE 62–83; RESP 14–18; TEMP 36.5–37.2; O2SAT 92–95
[2021-12-20] MEDS: SODIUM CHLORIDE 0.9% IV 1,000 ML 75 ML IV CONT (03:21)
[2021-12-20 05:13] LABS: Basophils Percent Auto 0.5 % (0.2-1.2); Eosinophils Absolute Auto 0.2 K/mm3 (0-0.3); Eosinophils Percent Auto 4.2 % (0-4.4); Hematocrit 35.1 % (37.0-47.0); Hemoglobin 11.2 g/dL (12.0-15.0); Immature Granulocyte Absolute 0.06 K/mm3 (0.00-0.031); Immature Granulocyte Percent A 1.5 % (0-0.5); Immature Platelet Fraction Pct 6.8 % (0.9-11.2); Lymphocytes Absolute Auto 1.32 K/mm3 (0.9-3.2); Lymphocytes Percent Auto 32.5 % (18.3-44.2); Mean Corpuscular HGB Conc 31.9 g/dl (32-36); Mean Corpuscular Hemoglobin 31.5 pg (26-34); Mean Corpuscular Volume 98.6 fl (80-100); Mean Platelet Volume 10.2 fl (7.4-10.4); Monocytes Absolute Auto 0.5 K/mm3 (0.1-0.6); Monocytes Percent Auto 11.1 % (2.6-8.5); Neutrophils Percent Auto 50.2 % (45.5-73.1); Platelet Count Result 112 k/mm3 (150-375); Red Blood Count 3.56 M/mm3 (4.2-5.4); White Blood Count 4.1 K/mm3 (4.5-10.0)
[2021-12-20 05:27] LABS: Anion Gap 5 mmol/L (8-16); Blood Urea Nitrogen 6 mg/dL (7-17); Calcium 7.7 mg/dL (8.4-10.2); Carbon Dioxide 23 mmol/L (22-30); Chloride 106 mmol/L (98-107); Estimated CRCL calculation 33 ml/min; Estimated Glomerular Filt Rate > 60; Glucose 73 mg/dL (65-110); Potassium 3.9 mmol/L (3.4-5.0); Sodium 134 mmol/L (137-145)
[2021-12-20] MEDS: LEVOTHYROXINE SODIUM 25 MCG TABLET PO (06:01)
[2021-12-20] MEDS: ACETAMINOPHEN 325 MG TABLET PO (06:07)
[2021-12-20 07:38] LABS: Glucose Point of Care 83 mg/dl (65-105)
[2021-12-20] MEDS: CHOLECALCIFEROL 1,000 UNITS TABLET 5000 UNITS PO (08:36)
[2021-12-20] MEDS: MIRTAZAPINE SOLTAB 15 MG TAB.DISPER PO (08:36)
[2021-12-20] MEDS: ASPIRIN 81 MG ENTERIC TABLET PO (08:36)
--- NOTE | 2021-12-20 10:33 | PM.DS ---
DS: Admitting Diagnosis Discharge Date 12/20/2021 Admitting Diagnosis syncope DS: Discharge Diagnosis Discharge Diagnosis (1) Syncope and collapse: Code(s): R55 - Syncope and collapse Status: Acute Assessment and Plan: The patient is a 86-year-old female a resident of nursing had a large bowel movement and became hypotensive, most likely dehydration patient being gently hydrated her blood pressure is trending up. She did have few runs of nonsustained ventricular tachycardia during the hospital stay which small dose of beta-pretty was added. she was noted to be orthostatic and hence was later stopped with no further recurrence of an SVT. Her syncope likely due to orthostatic hypotension related to large bowel movement/diarrhea /vasovagal. hypotensive on EMS evaluation with blood pressure systolic 78 mm Hg in ER she was in 90s have been hydrated and blood pressure has improved since then. She has poor appetite and poor p.o. intake and she is underweight with 42 kilos. Discussed this with the family who had taken care of her for while and recently was moved to nursing facility. They have opted to take her back home from here and will have 247 care for her. Discussed adequate p.o. intake and increasing calorie intake with addition of Ensure 2-3 times daily with meals will be needed for her to improve and recover Repeat CT chest abdomen pelvis done did not show any acute or chronic findings I believe orthostatic hypotension is related to severe malnutrition and cachexia and sarcopenia leading to physical deconditioning. Discussed overall care and prognosis with daughter over the phone (2) Acute kidney injury: Code(s): N17.9 - Acute kidney failure, unspecified Status: Acute Assessment and Plan: Creatinine of 1.8 on admission baseline is normal back to normal with hydration (3) Acute dehydration: Code(s): E86.0 - Dehydration Status: Acute Assessment and Plan: encouraged increased oral intake (4) Lactic acidosis: Code(s): E87.2 - Acidosis Status: Acute Assessment and Plan: 3.9 on admission lactic acid has since normalized Likely due to severe hypotension and dehydration. No signs of infection WBC count is normal chest x-ray is negative CT abdomen with nonobstructing bilateral nephrolithiasis and partial calcification of the gallbladder Blood culture x2 negative so far Urine culture no growth however urinalysis on admission with rbc's, wbc's many PT ileal cells and hyaline cast difficult to determine if she has UTI but this could suggest ATN like picture with dehydration Repeat urinalysis was negative Lactic acid repeat negative (5) Hypothyroidism: Code(s): E03.9 - Hypothyroidism, unspecified Status: Acute Assessment and Plan: TSH came back normal (6) Severely underweight adult: Code(s): R63.6 - Underweight Status: Acute Assessment and Plan: workup as an outpatient On mirtazapine at home for appetite her weight is 39 kilos Noted weight on 04/2018 21 to be 36 kilos Continue workup as an outpatient basis Very poor p.o. intake Nutrition consult Add Ensure Need encouragement and motivation Discussed this with the patient family (7) Pancytopenia: Code(s): D61.818 - Other pancytopenia Status: Acute Assessment and Plan: worsened during the admission platelet count normal on admission however down to 89,000 during the hospital stay. No heparin or Lovenox use since admission. Only new medication that she was received is levofloxacin in the ER for possible UTI which was not continued since admission. Pathologist review noted pancytopenia with mild normocytic anemia mild leukopenia and moderate thrombocytopenia negative for blasts and schistocytes. Pathologist suggest possibly dilutional due to ongoing IV fluid. Platelet count did recover up at the time of discharge. Vitamin B12 fo
--- NOTE | 2021-12-20 14:12 | PCPTNOTE ---
Patient refused treatment this session due to not feeling well. Will continue per POC.
[2021-12-21 14:17] LABS: Heparin Induced Platelet Antib Negative (Negative)
[2021-12-23 09:33] LABS: CMV IgM Antibody <30.00 AU/mL (<30.00)
== END 2021-12-20 16:44 | disposition home or self-care (01) | DRG 312 ==
LOC: ANHED 14:31 → ANH2MED 14:32
PROVIDERS: Physician Assistant; Admitting Provider Family Medicine; Emergency Provider General Practice; Visit Provider Internal Medicine
DX: I95.1 Orthostatic hypotension (principal); N17.9 Acute kidney failure, unspecified; E87.2 Acidosis; Z68.1 Body mass index [BMI] 19.9 or less, adult; D61.818 Other pancytopenia; R63.6 Underweight; E86.0 Dehydration; E03.9 Hypothyroidism, unspecified; I25.10 Atherosclerotic heart disease of native coronary artery without angina pectoris; I10 Essential (primary) hypertension; H91.90 Unspecified hearing loss, unspecified ear; Z79.82 Long term (current) use of aspirin; Z79.899 Other long term (current) drug therapy; Z95.1 Presence of aortocoronary bypass graft; Z98.49 Cataract extraction status, unspecified eye
CPT/HCPCS: 36415; 51701; 70450; 71045; 71250; 74176; 80048; 80053; 80074; 81001; 81003; 82525; 82607; 82728; 82746; 82948; 83605; 83690; 83735; 84100; 84443; 84484; 85025; 85027; 85055; 85384; 85610; 85730; 86022; 86038; 86140; 86644; 86645; 86703; 87040; 87086; 93005; 96360; 96361; 97161; 97165; 97530; 99285; A9270; G0378; G0432; J2405; J7030; J7040

== ENCOUNTER 2021-12-31 12:22 | Emergency (ER) | payer MEDICARE, MEDICAID, SELFPAY ==
[2021-12-31] VITALS (18 sets, daily range): BP systolic 91–136; BP diastolic 48–76; PULSE 57–93; RESP 13–28; TEMP 36–36.8; O2SAT 96–100
--- NOTE | ~2021-12-31 | CT_ITS ---
EXAMINATION: CTA chest DATE: 12/31/2021 18:37 INDICATION: Thoracic aneurysm TECHNIQUE: Computed tomographic angiography (CTA) of the chest was performed without and with 100 mL Omnipaque-350 intravenous contrast. Volume-rendered 3D-reconstructions of the aorta and large arterie s were constructed by the technologist on a separate workstation. Automated exposure control and iter ative reconstruction technique were employed. The dose-length product was 148.2 mGy-cm. COMPARISON: 12/18/2021 FINDINGS: Again seen is biapical pleural-parenchymal scarring. New patchy groundglass opacities in the right up per lobe and superior segment of the right lower lobe suspicious for pneumonia. Diffuse bronchiectasi s in both lungs. No pleural effusion or pneumothorax. Thoracolumbar dextroscoliosis with associated c hest wall deformity and mild pectus excavatum which exerts mass effect upon the anterior wall of the normal sized heart. Atherosclerotic coronary artery calcifications. Postoperative change of prior med xavier sternotomy with mediastinal surgical clips likely related to prior coronary artery bypass graftin g. 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 No pat hologically enlarged thoracic lymphadenopathy. Visualized upper abdomen is unremarkable. IMPRESSION: 1. New mild patchy airspace opacities in the right upper and lower lobes suspicious for pneumonia. Li ne 2. 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 Reviewed, dictated and finalized at location A. LVN IMPRESSION: 1. New mild patchy airspace opacities in the right upper and lower lobes suspic ious for pneumonia. Line 2. 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
--- NOTE | ~2021-12-31 | XR_ITS ---
EXAMINATION: XR chest 2V DATE: 12/31/2021 14:13 INDICATION: Weakness. TECHNIQUE: Frontal and lateral views of the chest were obtained. COMPARISON: Chest single view 12/15/2021, chest CT 12/18/2021 FINDINGS: There is mild scarring at the lung apices. No pleural effusion or pneumothorax. The heart s ize is normal. Median sternotomy wires and mediastinal surgical clips are seen, likely from prior cor onary artery bypass grafting. There is an aneurysm of descending thoracic aorta. IMPRESSION: 1. Stable mild scarring at the lung apices. 2. Aneurysm of descending thoracic aorta. Reviewed, dictated and finalized at location A. [employer]
--- NOTE | 2021-12-31 13:30 | PC.NURSE ---
Pt started complaining of chest pains and feeling sick while in triage waiting for room. Will obtain EKG and labs for chest pain protocol.
--- NOTE | 2021-12-31 13:37 | ECG_ITS ---
Measurements Intervals [place] Rate: 80 P: 79 CO: 190 QRS: -17 QRSD: 108 T: 71 QT: 409 QTc: 473 Interpretive Statements SINUS RHYTHM RIGHT ATRIAL ENLARGEMENT [0.3mV P WAVE] LEFT ATRIAL ENLARGEMENT [-0.15mV P WAVE IN V1/V2] CANNOT RULE OUT SEPTAL INFARCT, AGE INDETERMINATE INCOMPLETE RIGHT BUNDLE BRANCH BLOCK [90+ ms QRS DURATION, TERMINAL R IN V1/V2, 40+ ms S IN I/aVL/V4/V5/V6] NONSPECIFIC T-WAVE ABNORMALITY ABNORMAL ECG COMPARED TO ECG 12/15/2021 11:52:51 T-WAVE ABNORMALITY SLIGHTLY MORE PROMINENT Electronically Signed On 12-31-2021 14:57:03 [employer] by Nj Gracia M.D.
[2021-12-31 14:06] LABS: Basophils Absolute Auto 0.1 K/mm3 (0.0-0.1); Basophils Percent Auto 0.8 % (0.2-1.2); Eosinophils Absolute Auto 0.1 K/mm3 (0-0.3); Hematocrit 41.5 % (37.0-47.0); Hemoglobin 13.2 g/dL (12.0-15.0); Immature Granulocyte Absolute 0.36 K/mm3 (0.00-0.031); Immature Granulocyte Percent A 4.1 % (0-0.5); Lymphocytes Absolute Auto 1.48 K/mm3 (0.9-3.2); Lymphocytes Percent Auto 16.7 % (18.3-44.2); Mean Corpuscular HGB Conc 31.8 g/dl (32-36); Mean Corpuscular Hemoglobin 30.7 pg (26-34); Mean Corpuscular Volume 96.5 fl (80-100); Mean Platelet Volume 9.2 fl (7.4-10.4); Monocytes Absolute Auto 0.6 K/mm3 (0.1-0.6); Monocytes Percent Auto 6.2 % (2.6-8.5); Neutrophils Absolute Auto 6.3 K/mm3 (1.3-6.7); Neutrophils Percent Auto 71.2 % (45.5-73.1); Platelet Count Result 415 k/mm3 (150-375); White Blood Count 8.9 K/mm3 (4.5-10.0)
[2021-12-31 14:18] LABS: Alanine Aminotransferase 13 U/L (4-35); Albumin Level 4.6 g/dL (3.5-5.1); Alkaline Phosphatase 108 U/L (38-126); Anion Gap 16 mmol/L (8-16); Aspartate Amino Transferase 28 U/L (14-36); Bilirubin,Total 0.7 mg/dL (0.2-1.3); Blood Urea Nitrogen 9 mg/dL (7-17); Calcium 9.7 mg/dL (8.4-10.2); Carbon Dioxide 22 mmol/L (22-30); Chloride 100 mmol/L (98-107); Estimated Glomerular Filt Rate 60; Glucose 154 mg/dL (65-110); Lipase 184 U/L (23-300); Potassium 3.6 mmol/L (3.4-5.0); Sodium 138 mmol/L (137-145)
[2021-12-31 14:21] LABS: INR 0.9; Prothrombin Time 11.8 Seconds (11.1-14.7)
[2021-12-31 14:30] LABS: Troponin I < 0.012 ng/mL (0.000-0.034)
[2021-12-31 17:20] LABS: Troponin I < 0.012 ng/mL (0.000-0.034)
--- NOTE | 2021-12-31 18:05 | ED.GENADULT ---
HPI - General Adult General Chief complaint: Dizziness Stated complaint: failure to thrive Time Seen by Provider: 12/31/21 16:35 Source: RN notes reviewed Mode of arrival: EMS Limitations: other (Patient have severe hearing impairment, asking for water to drink.) History of Present Illness HPI narrative: Patient is 86 years old white female brought to the emergency room by ambulance from home with fainty feeling unknown duration. According to the triage that patient daughter reports that patient unable to eat or drink for months. And brought to the emergency room for failure to thrive. No family member at the bedside, unable to get hold of the daughter after numerous phone call to [phone]. Not able to communicate with the patient, severe hearing impairment. Related Data Home Medications Medication Instructions Recorded Confirmed acetaminophen 325 mg PO Q4-6H PRN 12/15/21 12/15/21 aspirin 81 mg PO DAILY 12/15/21 12/15/21 cholecalciferol (vitamin D3) 125 mcg PO DAILY 12/15/21 12/15/21 levothyroxine 25 mcg PO DAILY 12/15/21 12/15/21 mirtazapine 15 mg PO DAILY 12/15/21 12/15/21 Allergies Allergy/AdvReac Type Severity Reaction Status Date / Time aspirin Allergy Mild RASH,ITCHIN Verified 12/31/21 16:33 G chlordiazepoxide Allergy Mild Unknown Verified 12/31/21 16:33 [From Librium] diphenhydramine Allergy Unknown Unknown Verified 12/31/21 16:33 Penicillins Allergy Unknown Unknown Verified 12/31/21 16:33 sulfamethoxazole Allergy Unknown Gastrointestinal Verified 12/31/21 16:33 Upset trimethoprim Allergy Unknown Unknown Verified 12/31/21 16:33 Review of Systems Review of Systems: ROS unobtainable: Yes unobtainable due to medical condition, unobtainable due to mental status and other (Severe hearing impairment) PMFSH Past Medical History Medical History Coronary artery disease Failure to thrive Hearing loss Hypertension Hypothyroidism Surgical History Surgical History History of cataract extraction History of coronary artery bypass graft History of tonsillectomy Family History Family History Other Congestive heart failure Diabetes mellitus Hypertension Social History Social History Social History: Currently residing at a local jail. No alcohol, tobacco, or drug use. Healthcare power of city attorney is Genny Damon, daughter. Code status: Full code. Smoking status: Unknown if ever smoked Second hand tobacco smoke exposure: No Alcohol intake: never Substance use: never Substance use type: does not use Spiritual care concerns: No Exam Narrative: General appearance: Malnourished, cachectic, lethargic, severe hearing impairment Skin: Multiple bruises Head: Normocephalic, nontraumatic Eyes: Clear conjunctiva ENT: Oropharynx normal, ears normal, nose normal, no teeth, no dentures Neck: Supple, nontender Chest and respiratory: Airway patent, no respiratory distress, no accessory muscle use Heart: Regular rate/rhythm Abdomen: Soft, nontender, no organomegaly, quiet bowel sounds Vascular: Cold lower extremity bilaterally Musculoskeletal: Difficult to evaluate, patient does not follow verbal commands Neurologic: Alert and oriented to her name only Course Reevaluation(s) Reevaluation #1: I was able to get hold of patient's granddaughter, Chato at [phone] who is blaming her family because of inability to take care of the patient. And she is going to come over to pick her up and to manage her
== END 2021-12-31 19:43 | disposition home or self-care (01) ==
PROVIDERS: Emergency Provider Emergency Medicine
DX: R62.7 Adult failure to thrive (principal); I71.2 Thoracic aortic aneurysm, without rupture; I25.10 Atherosclerotic heart disease of native coronary artery without angina pectoris; I10 Essential (primary) hypertension; E03.9 Hypothyroidism, unspecified; Z95.1 Presence of aortocoronary bypass graft; Z98.49 Cataract extraction status, unspecified eye; R94.31 Abnormal electrocardiogram [ECG] [EKG]; R91.8 Other nonspecific abnormal finding of lung field
CPT/HCPCS: 36415; 71046; 71275; 80053; 83690; 84484; 85025; 85610; 85730; 93005; 99284; A9270; Q9967